=== PATIENT | female | born 1955 | race African-American/Black ===

== ENCOUNTER → 2017-01-25 | Outpatient (CLI) | payer BC ==
--- NOTE | 2017-01-27 09:04 | RADRPT ---
PROCEDURE: XR Foot. CLINICAL INDICATION: B/L FOOT PAIN TECHNIQUE: AP, lateral and oblique views of the right foot was obtained. The images were reviewed on a PACS workstation. COMPARISON: None. FINDINGS: The bones of the foot appear intact, with no evidence of acute fracture. There is narrowing of the joint space of the first interphalangeal joint as well as mild to moderate medial subluxation and lateral angulation of the distal phalanx with respect to the proximal phalan x. The joint spaces are preserved. Bone mineralization is normal. No significant soft tissue swelling is seen. 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 RPTAT: EE Physician Fam Date Time Electronically viewed and signed by Christiano Levine Physician on 01/27/2017 09:03 /
--- NOTE | 2017-01-27 09:04 | RADRPT ---
PROCEDURE: XR Foot. CLINICAL INDICATION: Pain TECHNIQUE: AP, lateral and oblique views of the left foot was obtained. The images were reviewed on a PACS workstation. COMPARISON: None. FINDINGS: The bones of the foot appear intact, with no evidence of fracture, dislocation, or subluxation. There is a tiny inferior calcaneal spur. The joint spaces are preserved. The bone mineralization is normal. No significant soft tissue swelling is seen. RPTAT: AA IMPRESSION: Tiny inferior calcaneal spur. Physician Fam Date Time Electronically viewed and signed by Physician Fam on 01/27/2017 09:04 /
== END | disposition home or self-care (01) ==
LOC: RAD 11:56
PROVIDERS: ATTEND Podiatrist Foot & Ankle Surgery
DX: M79.672 Pain in left foot (principal); M79.671 Pain in right foot; M77.32 Calcaneal spur, left foot
CPT/HCPCS: 73630